=== PATIENT | male | born 1955 | race Caucasian/White ===

== ENCOUNTER 2020-11-26 10:07 | Emergency (ER) | payer MEDICARE ==
[~2020-11-26] VITALS: Ht 172.7 cm; Wt 100.4 kg
[2020-11-26] MEDS ORDERED: FLOM0.4C39 PO (10:17)
[2020-11-26] MEDS ORDERED: OXYC-1 PO (10:17)
[2020-11-26] MEDS ORDERED: KETO10TAB PO (10:17)
[2020-11-26 12:24] LABS: BASO % 0.4 % (0.0-1.0); EOS # 0.1 10^3/uL (0.0-0.5); EOS % 1.4 % (0.0-3.0); HEMATOCRIT 42.3 % (42.0-52.0); HEMOGLOBIN 13.7 g/dl (13.5-17.5); LYMPH # 1.2 10^3/uL (1.5-5.0); LYMPH % 14.8 % (24.0-44.0); MEAN CORPUSCULAR HEMOGLOBIN 29.8 pg (27.0-33.0); MEAN CORPUSCULAR HGB CONC 32.4 g/dl (32.0-36.5); MEAN CORPUSCULAR VOLUME 92.2 fl (80.0-96.0); MONO # 0.7 10^3/uL (0.0-0.8); PLATELET COUNT, AUTOMATED 248 10^3/uL (150-450); RED BLOOD COUNT 4.59 10^6/uL (4.30-6.10)
[2020-11-26 12:55] LABS: ALBUMIN 3.4 GM/DL (3.2-5.2); BILIRUBIN,DIRECT 0.2 MG/DL (0.0-0.2); BILIRUBIN,TOTAL 0.7 MG/DL (0.2-1.0); CALCIUM LEVEL 8.7 MG/DL (8.8-10.2); CREATININE FOR GFR 1.42 MG/DL (0.70-1.30); GLOMERULAR FILTRATION RATE 53.3 (>49); POTASSIUM SERUM 4.7 MEQ/L (3.5-5.1); TOTAL PROTEIN 6.8 GM/DL (6.4-8.2)
[2020-11-26 14:26] VITALS: BP 183/101
== END 2020-11-26 14:27 | disposition home or self-care (01) ==
LOC: M ED 10:07
DX: N21.1 Calculus in urethra (principal); R30.0 Dysuria; Z87.442 Personal history of urinary calculi